=== PATIENT | male | born 1960 | race Caucasian/White ===

== ENCOUNTER 2018-06-11 13:19 | Outpatient (CLI) | payer OTHER ==
--- NOTE | 2018-06-11 15:59 | MRI ---
CERVICAL SPINE MRI 06/11/18 PROVIDED CLINICAL HISTORY: Neck pain. FINDINGS: There is slight anterolisthesis of C4 on C5 and slight retrolisthesis of C5 on C6. Vertebral body hei ghts are preserved. No focal concerning regional marrow signal abnormality is evident. The visualized posterior fossa, cervicomedullary junction and cervical spinal cord demonstrate normal signal and mo rphology. At C2-3, there is bilateral facet arthritis and bilateral uncinate process hypertrophy with mild righ t foraminal narrowing. No significant central canal stenosis apparent. At C3-4, there is a broad based disc osteophyte complex, bilateral uncinate process hypertrophy and b ilateral facet arthritis producing moderate-severe bilateral foraminal narrowing. At C4-5, there is bilateral facet arthritis without significant central canal or foraminal narrowing apparent. At C5-6, there is disc space height loss and a broad based disc osteophyte complex. There is effaceme nt of the ventral subarachnoid space with mild flattening of the ventral cord. Uncinate process hyper trophy is present bilaterally producing severe bilateral foraminal narrowing. At C6-7, there is broad based disc osteophyte complex which effaces the ventral subarachnoid space, w ithout cord contact or deformity. Bilateral uncinate process hypertrophy produces moderate right and severe left foraminal narrowing. At C7-T1, broad based disc osteophyte complex and bilateral uncinate process hypertrophy. There is mo derate right and no significant left foraminal narrowing. Mild effacement of the ventral subarachnoid space without cord contact or deformity. IMPRESSION: Cervical degenerative changes producing areas of canal and foraminal narrowing as described above. POS: MELO
--- NOTE | 2018-06-11 16:13 | RAD ---
CERVICAL SPINE RADIOGRAPHS FOUR VIEWS: 06/11/18 PROVIDED CLINICAL HISTORY: Cervical radiculopathy. FINDINGS: Slight anterolisthesis of C4 on C5. Cervical alignment appears otherwise normal. This appears to impr ove with extension and minimally accentuate with flexion. Disc space narrowing and end plate degenera tive changes involve C5-6 and C6-7. Multilevel facet arthritis. No evidence for fracture. No preverte bral soft tissue swelling apparent. The visualized lung apices appear clear. IMPRESSION: Prominent cervical degenerative change. POS: MELO
== END 2018-06-11 13:20 | disposition home or self-care (01) ==
LOC: BICMRI 13:19
PROVIDERS: ATTEND Surgery
DX: M47.22 Other spondylosis with radiculopathy, cervical region (principal); M54.2 Cervicalgia; M48.02 Spinal stenosis, cervical region; M47.813 Spondylosis without myelopathy or radiculopathy, cervicothoracic region
CPT/HCPCS: 72050; 72141

== ENCOUNTER 2023-03-12 06:50 | Observation (INO) | payer OTHER ==
[2023-03-11 08:54] VITALS: BMI 36.6
[2023-03-12 08:11] LABS: #Basophils 0.1 thou/uL (0.0-0.2); #Eosinphils 0.3 thou/uL (0.0-0.7); #Monocytes 0.9 thou/uL (0.11-0.59); #Neutrophils 4.6 thou/uL (1.40-6.50); %Basophils 0.7 % (0.0-1.0); %Eosinophils 3.8 % (0.0-10.0); %Lymphocytes 23.8 % (21.0-51.0); %Monocytes 11.2 % (0.0-10.0); %Neutrophils 60.2 % (42.0-75.0); Hematocrit 43.9 % (42.0-52.0); Hemoglobin 14.2 g/dL (14.0-18.0); Mean Corpuscular HGB CONC 32.3 g/dL (32.0-36.0); Mean Corpuscular Hemoglobin 28.9 pg (27.0-31.0); Mean Corpuscular Volume 89.4 fl (78.0-98.0); Mean Platelet Volume 9.3 fL (7.4-10.4); Platelet Count 356 10x3/uL (130-400); RBC Distribution Width 14.6 % (11.5-14.5); Red Blood Cell (RBC) Count 4.91 mill/uL (4.70-6.10); White Blood Cell (WBC) Count 7.6 10x3/uL (4.8-10.8)
[2023-03-12 08:27] LABS: INR-International Normal Ratio 0.9; Prothrombin Time 12.5 sec (12.0-14.7)
[2023-03-12 08:35] LABS: Anion Gap 15 mmol/L (10-20); BUN (Urea Nitrogen) 22 mg/dL (8.4-25.7); Calc. Creatinine Clearance 95 mL/min (70-130); Calcium 9.8 mg/dL (7.8-10.44); Carbon Dioxide 26 mmol/L (23-31); Chloride 102 mmol/L (98-107); Estimated GFR 53; Glucose 88 mg/dL (80-115); Potassium 4.6 mmol/L (3.5-5.1); Sodium 138 mmol/L (136-145)
[2023-03-12] MEDS ORDERED: Vancomycin 1 GM VIAL ONE (09:09)
[2023-03-12] MEDS ORDERED: Thrombin 5000 UNITS/5 ML VIAL ONE (09:10)
[2023-03-12] MEDS ORDERED: Midazolam HCl 2 mg/2 ml Vial ONE (09:16)
[2023-03-12] MEDS ORDERED: Acetaminophen 500 MG TAB ONE (09:16)
[2023-03-12] MEDS ORDERED: Sodium Chloride 0.9% 100 ML ONE (09:20)
[2023-03-12] MEDS ORDERED: CEFAZOLIN 2 GM VIAL ONE (09:20)
[2023-03-12] MEDS ORDERED: Fentanyl 250 MCG/5 ML VIAL ONE (09:23)
[2023-03-12] MEDS ORDERED: PROPOFOL 200 MG/20 ML VIAL ONE (09:35)
[2023-03-12] MEDS ORDERED: Albuterol HFA (OR) 200 PUFF INH ONE ×2 (09:35→10:07)
[2023-03-12] MEDS ORDERED: Dexamethasone 20 MG/5 ML VIAL ONE (09:35)
[2023-03-12] MEDS ORDERED: Rocuronium Bromide 10 MG/ML (10ML VIAL) ONE (09:35)
[2023-03-12] MEDS ORDERED: PHENYLEPHRINE-NS 100 MCG/ML 10 ML SYRINGE ONE (09:35)
[2023-03-12] MEDS ORDERED: Calcium Chloride 1 GM/10 ML Abboject SYRINGE ONE (09:35)
[2023-03-12] MEDS ORDERED: Glycopyrrolate 0.2 MG/ML 5 ML SYRINGE ONE (09:35)
[2023-03-12] MEDS ORDERED: Ondansetron PF 4 MG/2 ML Vial ONE (09:35)
[2023-03-12] MEDS ORDERED: NEOSTIGMINE 3 MG/3 ML SYR 3 MG/3 ML SYRINGE ONE (09:35)
[2023-03-12] MEDS ORDERED: Lidocaine 1% PF 5 ML VIAL ONE (09:35)
[2023-03-12] MEDS ORDERED: Phenylephrine 10 MG/ML VIAL ONE (10:10)
[2023-03-12] MEDS ORDERED: Ondansetron HCl/PF 4 MG/2 ML Vial IVP PRN (12:12)
[2023-03-12] MEDS ORDERED: Morphine Sulfate 2 MG/ML SYRINGE SLOW IVP PRN (12:12)
[2023-03-12] MEDS ORDERED: PACU-Morphine 4MG/ML VIAL SLOW IVP PRN (12:12)
[2023-03-12] MEDS ORDERED: Promethazine HCl 25 MG/ML VIAL IM PRN (12:12)
[2023-03-12] MEDS ORDERED: HYDROmorphone 2 MG/ML VIAL SLOW IVP PRN (12:12)
[2023-03-12] MEDS ORDERED: Acetaminophen/Codeine 30-300mg Tablet PO PRN (13:44)
[2023-03-12] MEDS ORDERED: Ondansetron PF 4 MG/2 ML Vial IVP PRN (13:44)
[2023-03-12] MEDS ORDERED: Milk Of Magnesia 30 ML UDCUP PO PRN (13:44)
[2023-03-12] MEDS ORDERED: Acetaminophen 325 MG TAB PO PRN (13:44)
[2023-03-12] MEDS ORDERED: Diazepam 5 MG TAB PO PRN (13:47)
[2023-03-12] MEDS ORDERED: hydrALAZINE 20 MG/ML VIAL SLOW IVP PRN (13:47)
[2023-03-12] MEDS ORDERED: Loperamide HCl 2 MG CAP PO PRN (13:48)
[2023-03-12] MEDS ORDERED: cloNIDine 0.1 MG TAB PO PRN (13:48)
[2023-03-12] MEDS ORDERED: diphenhydrAMINE 25 MG CAP PO PRN (13:48)
[2023-03-12] MEDS ORDERED: HYDROmorphone 2 MG/ML VIAL ONE (13:52)
[2023-03-12] MEDS ORDERED: Melatonin 3 MG TAB PO PRN (14:07)
[2023-03-12] MEDS ORDERED: HYDROmorphone 0.5 MG/0.5 ML SYRINGE ONE (14:07)
[2023-03-12] MEDS ORDERED: Gabapentin 300 MG CAP PO SCH (15:00)
[2023-03-12] MEDS: HYDROcodone/Acetaminophen 7.5/325 mg Tablet PO PRN ×2 (16:30→20:28)
[2023-03-12] MEDS: Sodium Chloride 0.9% 1,000 ML IV SCH (16:31)
[2023-03-12] MEDS: Morphine 2 MG/ML VIAL SLOW IVP PRN ×2 (16:47→21:16)
[2023-03-12] MEDS: CEFAZOLIN 2 GM in Sodium Chloride 0.9% 100 ML IVPB SCH (18:24)
[2023-03-12] MEDS: Gabapentin 300 MG CAP PO SCH (20:27)
[2023-03-12] MEDS: tiZANidine HCl 4 MG TAB PO PRN (20:28)
[2023-03-12] MEDS ORDERED: Lisinopril 20 MG TAB PO SCH (21:00)
[2023-03-13] MEDS: HYDROcodone/Acetaminophen 7.5/325 mg Tablet PO PRN ×2 (00:24→06:13)
[2023-03-13] MEDS: Morphine 2 MG/ML VIAL SLOW IVP PRN ×2 (02:05→11:15)
[2023-03-13] MEDS: CEFAZOLIN 2 GM in Sodium Chloride 0.9% 100 ML IVPB SCH ×2 (02:06→09:20)
[2023-03-13 04:51] VITALS: TEMP 97.8
[2023-03-13] MEDS: tiZANidine HCl 4 MG TAB PO PRN (06:14)
[2023-03-13 06:15] LABS: #Monocytes 1.2 thou/uL (0.11-0.59); #Neutrophils 11.8 thou/uL (1.40-6.50); %Basophils 0.1 % (0.0-1.0); %Lymphocytes 8.3 % (21.0-51.0); %Monocytes 8.3 % (0.0-10.0); %Neutrophils 82.9 % (42.0-75.0); Hematocrit 36.9 % (42.0-52.0); Hemoglobin 11.7 g/dL (14.0-18.0); Mean Corpuscular HGB CONC 31.7 g/dL (32.0-36.0); Mean Corpuscular Hemoglobin 28.5 pg (27.0-31.0); Mean Corpuscular Volume 89.8 fl (78.0-98.0); Mean Platelet Volume 9.6 fL (7.4-10.4); Platelet Count 304 10x3/uL (130-400); RBC Distribution Width 14.6 % (11.5-14.5); Red Blood Cell (RBC) Count 4.11 mill/uL (4.70-6.10); White Blood Cell (WBC) Count 14.2 10x3/uL (4.8-10.8)
[2023-03-13] MEDS: Sodium Chloride 0.9% 1,000 ML IV SCH (06:16)
[2023-03-13 07:06] LABS: Anion Gap 19 mmol/L (10-20); BUN (Urea Nitrogen) 24 mg/dL (8.4-25.7); Calc. Creatinine Clearance 87 mL/min (70-130); Calcium 8.9 mg/dL (7.8-10.44); Carbon Dioxide 22 mmol/L (23-31); Chloride 99 mmol/L (98-107); Estimated GFR 48; Glucose 118 mg/dL (80-115); Potassium 4.4 mmol/L (3.5-5.1); Sodium 136 mmol/L (136-145)
[2023-03-13] MEDS ORDERED: metFORMIN 500 MG TAB PO SCH (08:00)
[2023-03-13 08:15] VITALS: BP 151/83
[2023-03-13] MEDS ORDERED: DULoxetine 60 MG CAP PO SCH (09:00)
[2023-03-13] MEDS ORDERED: Hydrochlorothiazide 25 MG TAB PO SCH (09:00)
[2023-03-13] MEDS: Gabapentin 300 MG CAP PO SCH (09:32)
== END 2023-03-13 12:11 | disposition home or self-care (01) ==
LOC: SDC 06:50 → SURG B 13:37
PROVIDERS: ADMIT Surgery; ATTEND Surgery
PROC: 00NY0ZZ Release Lumbar Spinal Cord, Open Approach (ICD-10-PCS; principal; 2023-03-12)
DX: M48.062 Spinal stenosis, lumbar region with neurogenic claudication (principal)
CPT/HCPCS: 36415; 80048; 85025; 85610; 85730; 86850; 86900; 86901; 93005; 93010; J1100; J1170; J2250; J2272; J2370; J2405; J2704; J3010; J3370; J3490; J7050